=== PATIENT | male | born 1970 | race Caucasian/White ===

== ENCOUNTER 2016-12-11 08:47 | Emergency (ER) | payer SELFPAY ==
[2016-12-11 08:48] VITALS: BMI 29.9
[2016-12-11 08:55] VITALS: TEMP 98.7
--- NOTE | 2016-12-11 09:17 | DIRPT ---
CLINICAL DATA: Shortness of breath, pneumothorax EXAM: CHEST 2 VIEW COMPARISON: 11/14/2016 FINDINGS: Normal heart size, mediastinal contours and pulmonary vascularity. Small LEFT side pneumothorax slightly decreased since previous exam, estimated at 10%, appears slightly decreased. No mediastinal shift. Lungs clear. No pleural effusion or pneumothorax. Bones unremarkable. IMPRESSION: Slight interval decrease in size of LEFT pneumothorax since 11/14/2016. Electronically Signed By: Heladio Mata M.D. On: 12/11/2016 09:15
[2016-12-11 10:23] VITALS: BP 135/83
[2016-12-11 10:40] LABS: AUTOMATED BASOPHIL 0.8 % (0-2); AUTOMATED LYMPH 23.8 % (17-44); AUTOMATED MONOCYTE 10.4 % (3-10); MPV 7.1 fL (7.4-10.4)
[2016-12-11 10:55] LABS: BLOOD UREA NITROGEN 15 MG/DL (9-20); CALCIUM 9.9 MG/DL (8.4-10.2); CALCULATED OSMOLALITY 274 MOs/Kg (270-290); CHLORIDE 101 mEq/L (98-107); GLUCOSE 170 MG/DL (70-99); SODIUM LEVEL 140 mEq/L (137-146); TOTAL PROTEIN 8.3 G/DL (6.3-8.2)
--- NOTE | 2016-12-11 10:56 | DIRPT ---
CLINICAL DATA: Persistent pneumothorax for 2 months. No acute injury or prior relevant surgery. EXAM: CT CHEST WITHOUT CONTRAST TECHNIQUE: Multidetector CT imaging of the chest was performed following the standard protocol without IV contrast. COMPARISON: Radiographs 11/14/2016 and 12/11/2016. FINDINGS: Mediastinum/Nodes: There are no enlarged mediastinal, hilar or axillary lymph nodes. The thyroid gland, trachea and esophagus demonstrate no significant findings. The heart size is normal. There is no pericardial effusion. No significant vascular findings are seen on noncontrast imaging. Lungs/Pleura: There is no pleural effusion. As demonstrated on recent radiographs, there is a left-sided pneumothorax, estimated at approximately 15%. This has apical, anterior and basilar components, but no tension component. There is underlying emphysema with scattered intrapulmonary cysts and paraseptal blebs, most prominent within the lingula. Prominent paraseptal components are also present inferiorly in the lower lobe near the inferior pulmonary ligament. There is no focal airspace disease or suspicious pulmonary nodule. Upper abdomen: The liver demonstrates diffuse mildly heterogeneous steatosis. There are probable small cysts superior to the gallbladder on image 51. The adrenal glands appear unremarkable. Musculoskeletal/Chest wall: There is no chest wall mass or suspicious osseous finding. Specifically, no evidence of left-sided rib fracture. IMPRESSION: 1. Persistent, unchanged spontaneous pneumothorax on the left, probably from a ruptured subpleural bleb. No evidence of tension component. 2. Evidence of underlying emphysema with multiple paraseptal blebs as well as intrapulmonary cysts. These findings are nonspecific, and most commonly seen secondary to smoking. There are multiple other less common causes of cystic lung disease. 3. No evidence of rib fracture or pleural effusion. 4. Hepatic steatosis. Electronically Signed By: Sebas Hernández M.D. On: 12/11/2016 10:54
--- NOTE | 2016-12-11 11:17 | EDPRACDOC ---
- General Information Chief Complaint: Dyspnea/Resp distress Stated Complaint: RIB CAGE PAIN Time Seen by Provider: 12/11/16 09:55 Information Source: Patient Home Medications: Home Medications No Home Medications 12/11/16 Allergies/Adverse Reactions: Allergies Allergy/AdvReac Type Severity Reaction Status Date / Time prednisone Allergy Hives* Verified 12/11/16 10:26 - History of Present Illness HPI: PT PRESENTS FROM DR. DESIR'S OFFICE WITH SPONTANEOUS PNEUMOTHORAX FOR THE LAST MONTH UNCHANGED ON IMAGING TODAY. Shortness of Breath: Mild Relevant History: Reports: Other (SPONTANEOUS PNEUMOTHORAX.) SOB Worsens with: Reports: Exertion ED Past Medical History - History Reviewed Yes Nurses notes reviewed and agree except as marked - Patient Medical History Psychological History: Denies: Depression Systemic History: Reports: Diabetes - Social Medical History Smoking Status: Former smoker Lives With: Family Lives In: Home EDM Review of Systems - Review of Systems ROS Negative Except as Marked: Yes All systems reviewed and were negative except as marked Constitutional: negative: Fever Respiratory: Shortness of Breath (INTERMITTENT AND BRIEF.). negative: Cough Cardiovascular: negative: Chest Pain - Physical Exam Constitutional: Alert Oriented to: Time, Person, Place Last recorded Vital Signs: Last Vital Signs Temp 98.7 F 12/11/16 08:50 Pulse 60 12/11/16 10:21 Resp 20 12/11/16 10:21 BP 135/83 12/11/16 10:21 Pulse Ox 94 12/11/16 10:21 Oxygen Pulse Oxygen Saturation 94 O2 Device Room Air Oxygen Flow Rate Fraction of Inspired Oxygen ( FIO2) - HEENT Head: negative: Deformity, Laceration Eye Exam: negative: Conjunctival Injection, Pale Conjunctiva Oropharynx: negative: Membranes Dry Nose: negative: Congestion, Discharge Neck: negative: Limited ROM - Respiratory/Cardiovascular Respiratory: Normal - CTA. negative: Accessory Muscle Use, Diminished, Tachypnea Cardiovascular: negative: Bradycardia, Tachycardia, Irregular - Integumentary Skin: Warm, Dry. negative: Rash - Neurologic Memory Impaired: Normal Motor Function: Normal Mood Description: Appropriate Thought: Coherent Perception: Normal ED SOB MDM - Re-evaluation Re-evaluation 1 Re-evaluation Time: 11:18 Re-evaluation: SPOKE WITH DR. BATISTA AND DR. LEE. AGREE WITH PLAN TO FOLLOW UP IN OUTPATIENT WITH DR. LEE FOR REFERRAL TO CARDIOTHORACIC SURGERY FOR PLEURODESIS/VATS. PATIENT REMAINS ASYMPTOMATIC AND IS AGREEABLE TO PLAN. - Results Result Diagrams: 12/11/16 10:30 12/11/16 10:30 Results: WBC 8.2 xk/uL (3.8-10.8) 12/11/16 10:30 RBC 5.79 xM/uL (4.70-6.10) 12/11/16 10:30 Hgb 16.7 g/dL (14.0-18.0) 12/11/16 10:30 Hct 48.6 % (42-52) 12/11/16 10:30 MCV 84 fL (80-94) 12/11/16 10:30 MCH 28.8 pg (27-32) 12/11/16 10:30 MCHC 34.4 g/dl (33-36) 12/11/16 10:30 RDW 12.9 % (11.5-14.5) 12/11/16 10:30 Plt Count 311 xk/uL (130-400) 12/11/16 10:30 MPV 7.1 fL (7.4-10.4) L 12/11/16 10:30 Neut % (Auto) 62.0 % (45-76) 12/11/16 10:30 Lymph % (Auto) 23.8 % (17-44) 12/11/16 10:30 [place] % (Auto) 10.4 % (3-10) H 12/11/16 10:30 Eos % (Auto) 3.0 % (0-5) 12/11/16 10:30 Baso % (Auto) 0.8 % (0-2) 12/11/16 10:30 Absolute Neuts (auto) 5.08 xk/uL (1.7-8.2) 12/11/16 10:30 Absolute Lymphs (auto) 1.89 xk/uL (0.65-4.75) 12/11/16 10:30 Sodium 140 mEq/L (137-146) 12/11/16 10:30 Potassium 4.5 mEq/L (3.5-5.1) 12/11/16 10:30 Chloride 101 mEq/L (98-107) 12/11/16 10:30 Carbon Dioxide 27 mMOL/L (22-33) 12/11/16 10:30 Anion Gap 17 mEq/L (8-16) H 12/11/16 10:30 BUN 15 MG/DL (9-20) 12/11/16 10:30 Creatinine 1.00 MG/DL (0.66-1.25) 12/11/16 10:30 Estimated GFR (MDRD) > 60 mL/min (>=60) 12/11/16 10:30 Glucose 170 MG/DL (70-99) H 12/11/16 10:30 Calculated Osmolality 274 MOs/Kg (270-290) 12/11/16 10:30 Calcium 9.9 MG/DL (8.4-10.2) 12/11/16 10:30 Total Bilirubin 1.0 MG/DL (0.2-1.3) 12/11/16 10:30 AST 30 IU/L (17-59) 12/11/16 10:30 ALT 54 IU/L (21-72) 12/11/16 10:30 Alkaline Phosphatase 101 IU/L (38-126) 12/11/16 10:30 Total Protein 8.3 G/DL (6.3-8.2) H 12/11/16 10:30 Albumin 4.5 G/DL (3.5-5.0) 12/11/16 10:30 Lab Results 12/11/16 12/11/16 10:30 10:30 WBC 8.2 RBC 5.79 Hgb 16.7 Hct 48.6 MCV 84 MCH 28.8 MCHC 34.4 RDW 12.9 Plt Count 311 MPV 7.1 L Neut % (Auto) 62.0 Lymph % (Auto) 23.8 [place] % (Auto) 10.4 H Eos % (Auto) 3.0 Baso % (Auto) 0.8 Absolute Neuts (auto) 5.08 Absolute Lymphs (auto) 1.89 Sodium 140 Potassium 4.5 Chloride 101 Carbon Dioxide 27 Anion Gap 17 H BUN 15 Creatinine 1.00 Estimated GFR (MDRD) > 60 Glucose 170 H Calculated Osmolality 274 Calcium 9.9 Total Bilirubin 1.0 AST 30 ALT 54 Alkaline Phosphatase 101 Total Protein 8.3 H Albumin 4.5 Decision Time to Discharge: 11:19 - Departure Yes I personally saw and evaluated the patient. Disposition: Home Condition: Stable Final Diagnosis: Pneumothorax Qualifiers: Pneumothorax type: spontaneous, primary Qualified Code(s): J93.11 - Primary spontaneous pneumothorax Instructions: Spontaneous Pneumothorax (ED) Education/Counseling Given To: Patient Education/Counseling Given Regarding: Diagnosis, Treatment, Prognosis, Follow Up Referrals: Olayinka Hastings MD [Primary Care Provider] - One Week Matt Buitrago MD [NonStaff] - Call for Appointment Prescriptions: No Action No Home Medications 0 NA DIR #0 info Additional Instructions: PLEASE FOLLOW UP WITH DR. MICHAELS FOR FURTHER CARE. RETURN TO ER IF YOU BECOME SHORT OF BREATH OR IF YOU HAVE CHEST PAIN.
[2016-12-11 11:30] VITALS: PULSE 74
== END 2016-12-11 11:30 | disposition home or self-care (01) ==
LOC: ED 08:47
DX: J93.11 Primary spontaneous pneumothorax (principal)
CPT/HCPCS: 36415; 71020; 71250; 80053; 85025; 99283